=== PATIENT | male | born 1995 | race Caucasian/White ===

== ENCOUNTER 2018-09-01 05:45 | Emergency (ER) | payer OTHER, MEDICAID, SELFPAY ==
--- NOTE | 2018-09-01 05:54 | DI.RAD.S_ITS ---
PROCEDURE: XR CHEST 2V INDICATIONS: cough, chest pain TECHNIQUE: 2 views of the chest were acquired. COMPARISON: None. FINDINGS: Surgical changes and devices: None. Lungs and pleura: Lungs are clear. No pleural effusions or pneumothorax. Mediastinum: Mediastinal contours are normal. Heart size is normal. Bones and chest wall: No suspicious bony abnormalities. Soft tissues appear unremarkable. IMPRESSION: No evidence acute pulmonary process. Dictated by: Willie Randall M.D. on 09/01/2018 at 9:10 Approved by: Willie Randall M.D. on 09/01/2018 at 9:10
[2018-09-01 05:57] VITALS: BP 135/89; PULSE 88; RESP 16; TEMP 37.4; O2SAT 98; BMI 25.8
--- NOTE | 2018-09-01 06:01 | ED.URI ---
HPI - URI/Sore Throat General Chief Complaint: Upper Respiratory Symptoms Stated Complaint: CHEST PAIN, THROAT PAIN HURTS TO SWALLOW AND TALK Time Seen by Provider: 09/01/18 05:49 Source: patient and family Mode of arrival: ambulatory Limitations: no limitations History of Present Illness HPI Narrative: 22-year-old male nonsmoker presents with his significant other in the chief complaint of nasal congestion, runny nose, sore throat, dry and hacking cough with anterior chest pain. He denies any fever or chills. His symptoms started about 1 week ago. He denies any nausea, vomiting or diarrhea. He denies any obvious sick contacts MD Complaint: cough and sore throat Onset (ago): week(s) Duration: constant Severity: moderate Relieving factors: nothing Exacerbating factors: swallowing and speaking Able to tolerate fluids by mouth: Yes Treatments prior to arrival: none Review of Systems Constitutional Denies chills, Denies fever(s), Denies lethargy and Denies weakness Eyes Denies change in vision, Denies eye discharge, Denies irritation and Denies loss of vision ENT Ears, Nose, Mouth, and Throat: Denies change in voice, Reports nasal congestion, Reports nasal discharge, Denies neck pain and Reports sore throat Cardiovascular Reports chest pain, Denies irregular heart rhythm, Denies lightheadedness, Denies palpitations, Denies dyspnea, Denies dyspnea on exertion and Denies orthopnea Respiratory Denies cough, Denies dyspnea, Denies dyspnea on exertion and Denies wheezing Gastrointestinal Gastrointestinal: Denies abdominal pain, Denies change in bowel habits, Denies diarrhea, Denies nausea and Denies vomiting Genitourinary Denies hematuria, Denies flank pain, Denies urinary incontinence and Denies urinary urgency Musculoskeletal Denies neck pain Integumentary/Breasts Denies pruritus, Denies erythema, Denies rash and Denies wounds Neurologic Denies confusion, Denies loss of vision and Denies weakness Psychiatric Denies anxiety, Denies confusion, Denies depression, Denies homicidal ideation and Denies suicidal ideation Endocrine Denies palpitations Hematologic/Lymphatic Denies easy bruising Allergic/Immunologic Denies wheezing PFSH Social History Smoking Status: Never smoker Social History Smoking Status: Never smoker Exam Narrative Exam Narrative: GEN: AOx3 and in mild distress, no significant distress EYES: Pupils are equal, round, and reactive to light and accommodation. Extraoccular muscles are intact bilaterally. There is no subconjunctival hemorrhage or exudate. ENT: Clear postnasal drainage, mild pharyngeal erythema. Bilateral tympanic membranes are clear with normal cone of light. Left tympanic membrane shows a mild effusion CHEST: Lungs are clear to auscultation bilaterally and free of wheezes, rales, or rhonchi. Heart rate is regular rhythm, there are no murmurs, clicks, rubs, or gallops. There is no chest wall tenderness. ABD: Abdomen is soft and nontender. There is no guarding or rebound. Bowel sounds are normal in all 4 quadrants. There is no mass or organomegaly. EXT: Full painless ROM of all extremities with no loss of sensation or strength. SKIN: Warm, pink, and dry. No erythema or rash Initial Vital Signs Initial Vital Signs: Vital Signs Temperature 99.3 F 09/01/18 05:57 Pulse Rate 88 09/01/18 05:57 Respiratory Rate 16 09/01/18 05:57 Blood Pressure 135/89 09/01/18 05:57 Pulse Oximetry 98 09/01/18 05:57 Course Orders Ordered: ED Orders 09/01/18 05:54 XR chest 2V Stat 09/01/18 05:55 Influenza A and B by PCR Rapid Stat Vital Signs - 8 hr 09/01/18 05:57 Temperature 99.3 F Pulse Rate 88 Respiratory Rate 16 Blood Pressure 135/89 Pulse Oximetry 98 MDM - URI/Sore Throat Differential Diagnosis Differential diagnosis: Likely upper respiratory infection Lab Data Lab Results 09/01/18 Range/Units 05:55 Influenza A & B (PCR) Negative (Negative) Imaging Data Chest x-ray: My impression: NAP Discharge Plan Departure Patient Disposition: Home Clinical Impression: Upper respiratory infection Qualifiers: URI type: unspecified viral URI Qualified Code(s): J06.9 - Acute upper respiratory infection, unspecified Interventions: ED Discharge Assessment Last Done: 09/01/18 06:37 Instructions: DI for Viral Upper Respiratory Infection -- Adult Activity Restrictions/Additional Instructions: *You have been diagnosed with [ viral upper respiratory infection and pharyngitis ] *What to do: *Take medications as directed: [id number] cough and cold medications including an antihistamine, decongestant, and pain medicines such as Tylenol or Motrin *Follow up with your primary care provider in 2-3 days, call for an appointment. Let them know you were seen in the Emergency Department and that we ask that you be seen in follow up *Return to ER if you should have any new, worsening or concerning symptoms
[2018-09-01 06:22] LABS: Influenza A and B by PCR Rapid Negative (Negative)
== END 2018-09-01 06:37 | disposition home or self-care (01) ==
LOC: ED 06:49
PROVIDERS: Emergency Provider Emergency Medicine
DX: J06.9 Acute upper respiratory infection, unspecified (principal)
CPT/HCPCS: 71046; 87400; 99282; 99283